=== PATIENT | male | born 1970 | race Caucasian/White ===

== ENCOUNTER 2017-09-21 14:28 | Observation (INO) | payer OTHER ==
--- OUTSIDE RECORDS SUMMARY | 2017-09-21 14:44 | XMS REPORT | Clinical Summary ---
:1970 Author Organization [facility] Address [address] [place] [address] Care Team Providers Name Role Phone Uvaldo Guerrero MD Primary Care Provider Allergies Active Allergy Reactions Severity Noted Date Comments Clindamycin Rash Low 10/16/2016 Pregabalin Anaphylaxis High 10/16/2016 Current Medications Prescription Sig. Disp. Refills Start Date End Date Status aspirin (ECOTRIN) Take 81 mg by Active 81 MG enteric mouth daily. coated tablet citalopram (CeleXA) Take 20 mg by Active 10 MG tablet mouth nightly. atorvastatin Take 80 mg by Active (LIPITOR) 80 MG mouth nightly. tablet metoprolol tartrate Take 50 mg by Active (LOPRESSOR) 50 mg mouth 2 (two) tablet times a day. lisinopril Take 20 mg by Active (PRINIVIL,ZESTRIL) mouth daily. 20 mg tablet amitriptyline Take 25 mg by Active (ELAVIL) 25 MG mouth nightly. tablet pantoprazole Take 40 mg by Active (PROTONIX) 40 MG EC mouth daily. tablet clopidogrel Take 75 mg by Active (PLAVIX) 75 mg mouth daily. tablet acetaminophen-codei Take 1 tablet Active ne (TYLENOL WITH by mouth every CODEINE #3) 300-30 4 (four) hours mg per tablet as needed for moderate pain. HYDROcodone-acetami Take 1 tablet Active nophen (NORCO) by mouth every 7.5-325 mg per 6 (six) hours tablet as needed for moderate pain. gabapentin Take 300 mg by Active (NEURONTIN) 300 mg mouth 3 capsule (three) times a day. naproxen (NAPROSYN) Take 500 mg by 01/09/2017 Discontinued 500 MG tablet mouth 2 (two) times a day with meals. doxycycline Take 1 tablet 10 tablet 0 11/01/2016 11/06/2016 (VIBRA-TABS) 100 MG (100 mg total) tablet by mouth 2 (two) times a day for 5 days. Active Problems Problem Noted Date Coronary artery disease involving [place] coronary artery of [place] heart 10/16 S/P CABG x 4 10/16/2016 VT (ventricular tachycardia) 10/16/2016 Syncope 10/16/2016 Encounters Date Type Specialty Care Team Description 09/03/2017 Ancillary Orders Procedural Valderrabano, Syncope, unspecified Cardiology Koko Solis MD syncope type 08/29/2017 Hospital Encounter Procedural Valderrabano, Syncope, unspecified Cardiology Koko Solis MD syncope type 06/03/2017 Ancillary Orders Procedural Valderrabano, Syncope, unspecified Cardiology Koko Solis MD syncope type 05/31/2017 Hospital Encounter Procedural Valderrabano, Syncope, unspecified Cardiology Koko Solis MD syncope type 03/07/2017 Ancillary Orders Procedural Valderrabano, Syncope, unspecified Cardiology Koko Solis MD syncope type 03/01/2017 Hospital Encounter Procedural Valderrabano, Syncope, unspecified Cardiology Koko Solis MD syncope type 01/09/2017 Hospital Encounter Procedural Valderrabano, Syncope, unspecified Cardiology Koko Solis MD syncope type 01/09/2017 Procedure Pass Procedural Cardiology 01/09/2017 Surgery Procedural Valderrabano, Ep tilt table [17020 Shayna Solis MD (CPT)] 12/15/2016 Office Visit Cardiology Rosa, [place] (ventricular tachycardia ) (Primary Dx); Kina Amin NP Syncope, unspecified syncope type Koko Kauffman MD 12/04/2016 Ancillary Orders Procedural Valderrabano, Syncope, unspecified Cardiology Koko Solis MD syncope type 12/01/2016 Hospital Encounter Procedural Valderrabano, Syncope, unspecified Cardiology Koko Solis MD syncope type 11/29/2016 Orders Only Cardiology Michael Intermittent cerebral Mellissa ischemia (Primary Dx) WALDO Nova 11/29/2016 Orders Only Cardiology Mellissa Rodriguez RN 11/29/2016 Telephone Cardiology Michael, Syncope Mellissa Nova RN 11/01/2016 Hospital Encounter Procedural [place], Automatic ventricular Cardiology Koko Solis MD tachycardia 11/01/2016 Procedure Pass Procedural Cardiology 11/01/2016 Surgery Procedural Valderrabano, Ep loop recorder Cardiology Koko Solis MD insertion [39750 (CPT)] 10/30/2016 Hospital Encounter Procedural Valderrabano, [place] (ventricular Cardiology Koko Solis MD tachycardia) 10/30/2016 Lab Lab [place], Pre-operative cardiovascular examination ( Primary Dx); Koko Solis MD Paroxysmal ventricular tachycardia 10/18/2016 Transcribe Orders Procedural Valderrabano, [place] (ventricular Cardiology Koko Solis MD tachycardia) (Primary Dx) 10/16/2016 Office Visit Cardiology Tereso, Syncope, unspecified syncope type (Primary Dx); Koko Solis MD Coronary artery disease involving [place] coronary artery of [place] heart without angina pectoris; [place] (ventricular tachycardia); S/P CABG x 4 after 09/20/2016 Family History Medical History Relation Name Comments Hypertension Brother Stroke Brother Hypertension Father Hypertension Mother Hypertension Sister heart disease Relation Name Status Comments Brother Father Mother Sister heart disease Son hypertension Alive Social History Tobacco Use Types Packs/Day Years Used Date Former Smoker Smokeless Tobacco: Never Used Alcohol Use Drinks/Week oz/Week Comments No Sex Assigned at Date Recorded Not on file Last Filed Vital Signs Vital Sign Reading Time Taken Blood Pressure 138/89 01/09/2017 8:32 AM CDT Pulse 72 01/09/2017 8:32 AM CDT Temperature 36.7 C (98 F) 01/09/2017 6:58 AM CDT Respiratory Rate 26 01/09/2017 8:31 AM CDT Oxygen Saturation 96% 01/09/2017 8:32 AM CDT Inhaled Oxygen Concentration - - Weight 93.7 kg (206 lb 8 oz) 01/09/2017 6:58 AM CDT Height 170.2 cm (5' 7") 01/09/2017 6:58 AM CDT Body Mass Index 32.34 01/09/2017 6:58 AM CDT Plan of Treatment Health Maintenance Due Date Last Done Comments INFLUENZA VACCINE 12/26/2017 Implants Implanted Type Area Splunk Architect Device Expiration Model / Identifier Date Serial / Lot System Reveal Linq W/Monitors - [id number] - [id number] Cardiac N/A: MEDTRONIC 10/08/2017 LINQSYS / Implanted: Qty: 1 on 11/08/2016 by Koko Kauffman MD Pacemakers and N/A CARDIAC RHYTHM [id number] / Related DISEASE MGMT [id number] Products Procedures Procedure Name Priority Date/Time Associated Comments Diagnosis CV LOOP RECORDER Routine 09/03/2017 4:22 Syncope, MONITOR EVAL PM CDT unspecified syncope <30DAYS type CV LOOP RECORDER Routine 06/03/2017 2:25 Syncope, 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 CV PACEMAKER DEFIB ILR Routine 12/15/2016 12:00 INTERROGATION AM CDT CV LOOP RECORDER Routine 12/04/2016 2:37 Syncope, MONITOR EVAL PM CDT unspecified syncope <30DAYS type CV PACEMAKER DEFIB ILR Routine 11/29/2016 12:00 INTERROGATION AM CDT EP LOOP RECORDER Routine 11/01/2016 5:27 Automatic Results for this INSERTION PM CDT ventricular procedure are in tachycardia the results section. EP COMPREHENSIVE STUDY Routine 11/01/2016 5:27 Automatic Results for this W ARRHYTHMIA INDUCTION PM CDT ventricular procedure are in tachycardia the results section. after 09/20/2016 Results Pv Transcranial Doppler intracranial arteries emboli detect wo inj (01/09/2017 8:30 AM) Specimen Performing Laboratory [facility] [address] [place] [address] Narrative Vascular Ultrasound Laboratory Transcranial Doppler Report (TCD) [address] [place] [address] Pat.Name:FRANCISCA UNGER Pat.ID:[id number] St.Date: 01/09/2017 Refer.MD:KOKO KAUFFMAN MD Exam Time: 6:20:00 AMStudy Type:TCD DOBAge:1970,46YSex: MALE Sonogrphr: Sylwia Rogers RVTPbrielle. Stat.:Inpatient Room:[place] [address] Room 15 TapeVol: RF, CPT - 4: 19640 Echo Event ID:[id number] Order ID:[id number] Reason for Study:Multiple recurrent syncopal episodes. History of CAD, s/p PR, S/P CABG(08/2015). Race:C SUMMARY: TECHNIQUE: A head frame was placed with a transducer placed on the left temporal window. Transcranial Doppler was used to monitor the brain through the temporal lobe. The Middle cerebral artery was evaluated during tilt table assessment. PRELIMINARY FINDINGS: 1.There was no changes in velocities and waveforms during the 30 minute tilt table assessment. 2.No evidence of emboli noted. PHYSICIAN INTERPRETATION: There was no significant changes in velocities and waveforms during the 30 minute tilt table assessment. Signed 01/09/2017 05:15 PM Demetrius Frias MD, RPVI Procedure Note Interface, Radiology Results In - 01/09/2017 5:15 PM CDT Vascular Ultrasound Laboratory Transcranial Doppler Report (TCD) [address] [place] [address] Pat.Name: FRANCISCA UNGER Pat.ID: [id number] .Date: 01/09/2017 Refer.MD: KOKO KAUFFMAN MD Exam Time: 6:20:00 AM Study Type:TCD Age: 12 1970,46Y Sex: MALE Sonogrphr: Sylwia Rogers RVT Pat. Stat.:Inpatient Room: [place] [address] Room 15 Tape Vol: RF, CPT - 4: 65733 Echo Event ID:[id number] Order ID: [id number] Reason for Study:Multiple recurrent syncopal episodes. History of CAD, s/p PR, S/P CABG(08/2015). Race: C SUMMARY: TECHNIQUE: A head frame was placed with a transducer placed on the left temporal window. Transcranial Doppler was used to monitor the brain through the temporal lobe. The Middle cerebral artery was evaluated during tilt table assessment. PRELIMINARY FINDINGS: 1. There was no changes in velocities and waveforms during the 30 minute tilt table assessment. 2. No evidence of emboli noted. PHYSICIAN INTERPRETATION: There was no significant changes in velocities and waveforms during the 30 minute tilt table assessment. Signed 01/09/2017 05:15 PM Demetrius Frias MD, RPVI Cv electrophysiology procedure (01/09/2017 8:25 AM) Specimen Performing Laboratory [facility] [address] [place] [address] Narrative Cardiac Catheterization Operative Note Francisca Unger,[id number] 46 y.o. male 01/09/2017; [facility] 8 PROCEDURE ROOM 15 Procedure(s): Ep tilt table Procedure Details 46 year-old man with CAD, s/p PR, preserved EF, and recurrent syncope. Negative workup including EPS, ILR implant. Underwent tilt-table testing under TCD cerebral flow monitoring. Vitals and TCD were monitored during horizontal position for 20 minutes. Tilted up to 70 degrees. BP increased up to 17-190/90-107. Only symptoms were headache due to TCD helmet. After 25 minutes, 0.4 mg of SL NTG were administered. BP dropped to 160/90 without any symptom other than persistent headache. The test was then terminated. Conclusion: negative tilt table test. Syncope origin remains a mystery but unlikely to be cardiac given the extensive workup thus far. Pre-op Diagnosis: Syncope, unspecified syncope type [R55] Post-Op Diagnosis Codes: * Syncope, unspecified syncope type [R55] Surgeon(s) and Role: * Koko Kauffman MD - Primary Anesthesia: Anesthesia type not filed in the log. Blood Products Administered:0 Estimated Blood Loss: * No values recorded between 01/09/20177:32 AM and 01/09/20178:42 AM * Sheath/IV: Specimens: * No specimens in log * Grafts/Implants: None MD John Date: 01/09/2017Time: 8:42 AM ECG 12 lead (01/09/2017 6:58 AM)Only the most recent of4 resultswithin the time period is included. Component Value Ref Range Ventricular rate 60 Atrial rate 60 ME interval 168 QRSD interval 104 QT interval 448 QTC interval 448 P axis 1 55 QRS axis 1 -1 T wave axis 33 EKG impression Normal sinus rhythm-Normal ECG-In automated comparison with ECG of 15-DEC-2016 15:52,-Nonspecific T wave abnormality has replaced inverted T waves in Inferior leads- Specimen Performing Laboratory [facility] [address] [place] [address] CV pacemaker defib or ilr interrogation (12/15/2016)Cv pacemaker defib or ilr interrogation (12/04/2016 2:37 PM) Specimen Performing Laboratory [facility] [address] [place] [address] CT Head External Study (11/29/2016)CV pacemaker defib or ilr interrogation (09/2016)ECG Pre/Post Op (11/01/2016 5:45 PM) Component Value Ref Range Ventricular rate 65 Atrial rate 65 ME interval 174 QRSD interval 100 QT interval 408 QTC interval 424 P axis 1 60 QRS axis 1 2 T wave axis 53 EKG impression Normal sinus rhythm-Normal ECG-In automated comparison with ECG of 01-NOV-2016 11:58,-No significant change was found- Specimen Performing Laboratory [facility] [address] [place] [address] Cv electrophysiology procedure (11/01/2016 5:27 PM) Specimen Performing Laboratory [facility] [address] [place] [address] Narrative ELECTROPHYSIOLOGY SERVICE OPERATIVE REPORT PREPROCEDURE DIAGNOSES: 1. Wide complex tachycardia 2. Syncope 3. CAD status post CABG (cardiac MRI with total scar burden in LV of 4 %) POSTPROCEDURE DIAGNOSIS: 2. EP Study non-inducible for ventricular tachycardia/ventricular fibrillation TITLE OF PROCEDURES: 1. Partial electrophysiologic study 2. Partial electrophysiologic study with isoproterenol ATTENDING SURGEON: Dr. Koko Kauffman ELECTRONIC GAMING DEVICE SUPERVISOR: Dr. Jude Dennison REFERRING PHYSICIAN: ANESTHESIA: Conscious sedation for 60 minutes INDICATIONS: The patient is a 63 y.o. year old male with history ofCAD status post CABG (cardiac MRI with total scar burden in LV of 4 %), recurrent syncope, and wide complex tachycardia by event monitor referred for diagnostic electrophysiologic study. DOCUMENTATION OF INFORMED CONSENT: Prior to the procedure, I had spoken extensively with the patient regarding the risks, benefits, and alternatives to diagnostic electrophysiologic study.The risks discussed included, but were not limited to the risks of , bleeding, perforation, infection, tamponade, heart failure, and recurrent arrhythmias.He asked appropriate questions and these were fully answered and he wished to proceed. DETAILS: After written informed consent was obtained from the patient in the fasting, nonsedated state, the patient was brought to the cardiac catheterization laboratory and was anesthetized as above.Vascular access was now obtained using a modified Seldinger technique and guided by ultrasonography as follows: 1.Right femoral vein:6-American sheaths x 2. We now advanced catheters under fluoroscopic guidance as follows: 1.A quadripolar CRD catheter was positioned at the right ventricular apex. 2.A quadripolar CRD-2 catheter was positioned at the RV base. The above catheters were repositioned to other sites as needed. We performed the baseline electrophysiologic study with findings as given below, using the catheters specified above. Isoproterenol was administered up to 10 mcg/min. It should be noted that he experienced syncope during the electrophysiologic study similar to his usual syncopal episodes at home. His HR and BP were stable and there was no VT/VF seen/induced at the time of the syncopal episode or during the electrophysiologic study. At this point, the electrophysiologic study was completed, and all catheters and sheaths were removed and excellent hemostasis was obtained using manual compression. ESTIMATED BLOOD LOSS: 5 ml. COMPLICATIONS: None. FINDINGS: 1.The baseline rhythm was normal sinus rhythm. 2.Normal HV 50 msec, AH 114 msec, ME 160 msec, QT 400 msec, QRS 84 msec. 3.There was no retrograde VA conduction at baseline at cycle length 600 msec. 4.RVERP 260 msec, baseline, pacing cycle length 600 msec. 5.RVERP 210 msec, baseline, pacing cycle length 450 msec. 6.RVERP 230 msec, isoproterenol, pacing cycle length 600 msec. 7.RVERP 230 msec, isoproterenol, pacing cycle length 450 msec. 8.Induced arrhythmias: None PLAN: 1. The patient will be kept on strict bed rest per routine for 4 hours. Given non-inducibility of ventricular tachycardia, it was strongly felt that he would be a good candidate for the LINQ ILR for long-term cardiac rhythm monitoring. Thus, the decision was made to implant the LINQ ILR.This was also discussed with both the patient and in his and they were in agreement with the plan. He will be discharged home today following LINQ ILR implant. ELECTROPHYSIOLOGY SERVICE PROCEDURE REPORT PREOPERATIVE DIAGNOSIS: 1. Syncope 2. Wide complex tachycardia POSTOPERATIVE DIAGNOSIS: 1. S/p successful insertion of an implantable loop recorder PROCEDURE PERFORMED: 1. Implantable loop recorder placement. INDICATIONS: This is a 46 y.o. male with history of CAD status post CABG (cardiac MRI with total scar burden in LV of 4 %), recurrent syncope, and wide complex tachycardia by event monitor referred for diagnostic electrophysiologic study and was non-inducible for VT/VF. Thus, he is referred for LINQ ILR implant for long-term cardiac monitoring. He was seen by the attending migratory worker and was deemed an appropriate candidate for the LINQ ILR implant. PROCEDURE IN DETAIL: The patient was brought to the cardiac catheterization procedure room. The left chest was cleaned and prepped in usual fashion and draped. Lidocaine 1% was administered to the left upper chest.A 1 cm incision was made and an implantable loop recorder was deployed.The incision was subsequently closed with 4.0 running suture and Dermabond.The patient tolerated the procedure well with no immediate complications. IMPLANTED MATERIALS: ILR: Medtronic model LNQ11 serial [id number] CONCLUSION: Successful implantable loop recorder placement. Cardiac mri function viability chf evaluation (10/30/2016 1:51 PM) Specimen Performing Laboratory [facility] [address] CMR Report Patient Patient Name: FRANCISCA UNGER Patient : 1970 Scan Date:2016-10-30 13:00:52 Finalized and signed by José Ibarra M.D. (uid:20) 12:04: 37. SUMMARY ====== ======== 1.Mild RA enlargement. NO intra-cardiac thrombus.Sternotomy wires noted. 2.Normal LV and RV systolic function without wall motion abnormalities ( LVEF 67%, RVEF 55%). 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 There is a separate focal subendocardial infarction (< 25% wall thickness) in the apical septum. Total scar burden is 4% of LV. 4.NO significant valvular abnormalities. 5.Mildly dilated aortic root (4.0 cm SoV). The reminder of the thoracic aorta is of normal caliber without an aneurysm or dissection. Normal pulmonary venous anatomy. CORE EXAM ====== ======== MEASUREMENTS VOLUMETRIC ANALYSIS . . || LV | Reference| RV | Reference| +------+ + + + + | EDV| 143.6 ml |(131-202) | 138.9 ml |(126-220) | | ESV| 48 ml|(35-78) | 63.2 ml|(33-92) | | CO | 6.88 L/min || 5.45 L/min || | MASS | 109.8 g|(118-186) ||| | SV | 95.6 ml|(86-135)| 75.7 ml|(80-145)| | EF | 66.57 %|(118-153) | 54.5 % |(106-157) | '------+ + + + ' HEART RATE:72 LV DIMENSIONS WALL THICKNESS - ANTEROSEPTAL:0.8 cm WALL THICKNESS - INFEROLATERAL:0.7 cm LV PREETHI:4.9 cm LV ESD:3.6 cm LA DIMENSIONS (LV SYSTOLE) DIAMETER:2.6 cm AREA - 2 CHAMBER:15 cm^2 LENGTH - 2 CHAMBER:4.2 cm AREA - 4 CHAMBER:14 cm^2 LENGTH - 4 CHAMBER:3.5 cm VOLUME:51 ml AORTIC ROOT DIMENSIONS DIAMETER - ANNULUS:2.7 cm DIAMETER - SINUS OF VALSALVA:4 cm DIAMETER - SINOTUBULAR JUNCTION:2.6 cm AORTIC ROOT SIZE:MILDLY DILATED CONDENSED SUMMARY LV:Normal Wall Thickness. Cavity Size is Normal. No Mass/Thrombus. RV:Normal Wall Thickness. Contractility is Normal. Cavity Size is Normal. No Mass/Thrombus. No Pacemaker/Defibrillator Wire. IVS:Normal Interventricular Septum. LA:Cavity Size is Normal. No Mass/Thrombus. IAS:Normal Interatrial Septum. RA:Cavity Size is MILDLY ENLARGED. No Mass/Thrombus. No Additional Findings. No Pacemaker/Defibrillator Wire. PER:Normal Pericardium. No Effusion. PE:No Pleural Effusion. AV:Trileaflet. No Aortic Regurgitation. No Aortic Stenosis. TV:Normal Leaflets. Trivial Tricuspid Regurgitation. No Tricuspid Stenosis. MV:Normal Leaflets. No Mitral Regurgitation. No Mitral Stenosis. PV:Normal Leaflets. No Pulmonic Regurgitation. No Pulmonic Stenosis. 17 SEGMENT . ------ ------. | LV Segments| Wall Motion| Hyperenhancement | Stress Perfusion | Interpretation | + + + + +---- ------ ------+ | Base Anterior| Normal/Hyper | None ||| | Base Anteroseptal| Normal/Hyper | None ||| | Base Inferoseptal| Normal/Hyper | None ||| | Base Inferior| Normal/Hyper | None ||| | Base Inferolateral | Normal/Hyper | 1-25%|| Sub-Endo PR| | Base Anterolateral | Normal/Hyper | 1-25%|| Sub-Endo PR| | Mid Anterior | Normal/Hyper | None ||| | Mid Anteroseptal | Normal/Hyper | None ||| | Mid Inferoseptal | Normal/Hyper | None ||| | Mid Inferior | Normal/Hyper | None ||| | Mid Inferolateral| Normal/Hyper | 1-25%|| Sub-Endo PR| | Mid Anterolateral| Normal/Hyper | 1-25%|| Sub-Endo PR| | Apical Anterior| Normal/Hyper | None ||| | Apical Septal| Normal/Hyper | 1-25%|| Sub-Endo PR| | Apical Inferior| Normal/Hyper | None ||| | Apical Lateral | Normal/Hyper | None ||| | Dennis | Normal/Hyper | None ||| + + + + +---- ------ ------+ | RV Segments| Wall Motion| Hyperenhancement | Stress Perfusion | Interpretation | + + + + +---- ------ ------+ | RV Basal Anterior| Normal/Hyper | None ||| | RV Basal Inferior| Normal/Hyper | None ||| | RV Mid | Normal/Hyper | None ||| | RV Apical| Normal/Hyper | None ||| ' + + + +---- ------ ------' FINDINGS INFARCT/SCAR SIZE:4 % VASCULAR ====== ======== SCAN INFO ====== ======== GENERAL SEDATION SEDATION USED?:Yes TYPE:Lorazepam DOSE:1 mg ANY REACTION?:No CONTRAST AGENT TYPE:Dotare[employer] LOT NUMBER:[id number] EXPIRATION DATE:2018-08-25 00:00:00 VOLUME ADMINISTERED:28 ml DOSAGE FOR 0.5M:0.15 mmol/kg SERUM CREATININE:1 sCr FEMALE:No OR BLACK:Unknown CREATININE DATE:2016-10-30 00:00:00 LAB RESULT HEMATOCRIT LEVEL:44.9 % HEMATOCRIT DATE:2016-10-30 00:00:00 VITALS HEIGHT:67 in HEIGHT:170.18 cm BODY WEIGHT:205.01 lbs BODY WEIGHT:92.99 kgs BSA::2.04 m^2 SYSTOLIC BP:131 mmHg DIASTOLIC BP:83 mmHg HEART RATE:76 BPM HEART RHYTHM:Sinus Rhythm PULSE SEQUENCE PULSE SEQUENCES:Single-Shot SSFP, IR SSFP - Single Shot, Single Shot BB HERMILA, SSFP Cine, Phase Contrast Velocity Mapping, 3D MRA w and w/o contrast, Time- Resolved 3D MRA SETUP TYPE:Both INPATIENT:No LOCATION:[facility] INCOMPLETE SCAN:No REASON(S) FOR SCAN:CHF/Cardiomyopathy, Syncope REFERRING PHYSICIAN:1) Koko TAYLOR PHYSICIAN:José Ibarra MD TECHNOLOGIST:Barb Rader [facility] ASSISTANTS:1) Capri Rios RN 2) Wilmar Melton, RT 3) Emmett Miller MD BILLING Patient Account [id number] CPT Codes 78337, [ , ]31404 ICD10 Codes R94.30, [ , ]R93.1, [ , ]I49.8 Procedure Note Interface, Radiology Results In - 10/31/2016 12:05 PM CDT Darell Johnson CMR Report Patient Patient Name: FRANCISCA UNGER Patient : 1970 Scan Date: 2016-10-30 13:00:52 Finalized and signed by José Ibarra M.D. (uid:20) 12:04:37. SUMMARY 1. Mild RA enlargement. NO intra-cardiac thrombus. Sternotomy wires noted. 2. Normal LV and RV systolic function without wall motion abnormalities (LVEF 67%, RVEF 55%). 3. Subendocardial infarction (< 25% wall thickness) in the basal-mid lateral wall (LCX distribution). There is a separate focal subendocardial infarction (< 25% wall thickness) in the apical septum. Total scar burden is 4% of LV. 4. NO significant valvular abnormalities. 5. Mildly dilated aortic root (4.0 cm SoV). The reminder of the thoracic aorta is of normal caliber without an aneurysm or dissection. Normal pulmonary venous anatomy. CORE EXAM MEASUREMENTS VOLUMETRIC ANALYSIS . . | | LV | Reference | RV | Reference | +------+ + + + + | EDV | 143.6 ml | (131-202) | 138.9 ml | (126-220) | | ESV | 48 ml | (35-78) | 63.2 ml | (33-92) | | CO | 6.88 L/min | | 5.45 L/min | | | MASS | 109.8 g | (118-186) | | | | SV | 95.6 ml | (86-135) | 75.7 ml | (80-145) | | EF | 66.57 % | (118-153) | 54.5 % | (106-157) | '------+ + + + ' HEART RATE: 72 LV DIMENSIONS WALL THICKNESS - ANTEROSEPTAL: 0.8 cm WALL THICKNESS - INFEROLATERAL: 0.7 cm LV PREETHI: 4.9 cm LV ESD: 3.6 cm LA DIMENSIONS (LV SYSTOLE) DIAMETER: 2.6 cm AREA - 2 CHAMBER: 15 cm^2 LENGTH - 2 CHAMBER: 4.2 cm AREA - 4 CHAMBER: 14 cm^2 LENGTH - 4 CHAMBER: 3.5 cm VOLUME: 51 ml AORTIC ROOT DIMENSIONS DIAMETER - ANNULUS: 2.7 cm DIAMETER - SINUS OF VALSALVA: 4 cm DIAMETER - SINOTUBULAR JUNCTION: 2.6 cm AORTIC ROOT SIZE: MILDLY DILATED CONDENSED SUMMARY LV:Normal Wall Thickness. Cavity Size is Normal. No Mass/Thrombus. RV:Normal Wall Thickness. Contractility is Normal. Cavity Size is Normal. No Mass/Thrombus. No Pacemaker/Defibrillator Wire. IVS:Normal Interventricular Septum. LA:Cavity Size is Normal. No Mass/Thrombus. IAS:Normal Interatrial Septum. RA:Cavity Size is MILDLY ENLARGED. No Mass/Thrombus. No Additional Findings. No Pacemaker/Defibrillator Wire. PER:Normal Pericardium. No Effusion. PE:No Pleural Effusion. AV:Trileaflet. No Aortic Regurgitation. No Aortic Stenosis. TV:Normal Leaflets. Trivial Tricuspid Regurgitation. No Tricuspid Stenosis. MV:Normal Leaflets. No Mitral Regurgitation. No Mitral Stenosis. PV:Normal Leaflets. No Pulmonic Regurgitation. No Pulmonic Stenosis. 17 SEGMENT . . | LV Segments | Wall Motion | Hyperenhancement | Stress Perfusion | Interpretation | + + + + +---- + | Base Anterior | Normal/Hyper | None | | | | Base Anteroseptal | Normal/Hyper | None | | | | Base Inferoseptal | Normal/Hyper | None | | | | Base Inferior | Normal/Hyper | None | | | | Base Inferolateral | Normal/Hyper | 1-25% | | Sub -Endo PR | | Base Anterolateral | Normal/Hyper | 1-25% | | Sub -Endo PR | | Mid Anterior | Normal/Hyper | None | | | | Mid Anteroseptal | Normal/Hyper | None | | | | Mid Inferoseptal | Normal/Hyper | None | | | | Mid Inferior | Normal/Hyper | None | | | | Mid Inferolateral | Normal/Hyper | 1-25% | | Sub -Endo PR | | Mid Anterolateral | Normal/Hyper | 1-25% | | Sub -Endo PR | | Apical Anterior | Normal/Hyper | None | | | | Apical Septal | Normal/Hyper | 1-25% | | Sub -Endo PR | | Apical Inferior | Normal/Hyper | None | | | | Apical Lateral | Normal/Hyper | None | | | | Dennis | Normal/Hyper | None | | | + + + + +---- + | RV Segments | Wall Motion | Hyperenhancement | Stress Perfusion | Interpretation | + + + + +---- + | RV Basal Anterior | Normal/Hyper | None | | | | RV Basal Inferior | Normal/Hyper | None | | | | RV Mid | Normal/Hyper | None | | | | RV Apical | Normal/Hyper | None | | | ' + + + +---- ' FINDINGS INFARCT/SCAR SIZE: 4 % VASCULAR SCAN INFO GENERAL SEDATION SEDATION USED?: Yes TYPE: Lorazepam DOSE: 1 mg ANY REACTION?: No CONTRAST AGENT TYPE: Dotarem LOT NUMBER: [id number] EXPIRATION DATE: 2018-08-25 00:00:00 VOLUME ADMINISTERED: 28 ml DOSAGE FOR 0.5M: 0.15 mmol/kg SERUM CREATININE: 1 sCr FEMALE: No OR BLACK: Unknown CREATININE DATE: 2016-10-30 00:00:00 LAB RESULT HEMATOCRIT LEVEL: 44.9 % HEMATOCRIT DATE: 2016-10-30 00:00:00 VITALS HEIGHT: 67 in HEIGHT: 170.18 cm BODY WEIGHT: 205.01 lbs BODY WEIGHT: 92.99 kgs BSA:: 2.04 m^2 SYSTOLIC BP: 131 mmHg DIASTOLIC BP: 83 mmHg HEART RATE: 76 BPM HEART RHYTHM: Sinus Rhythm PULSE SEQUENCE PULSE SEQUENCES: Single-Shot SSFP, IR SSFP - Single Shot, Single Shot BB HERMILA, SSFP Cine, Phase Contrast Velocity Mapping, 3D MRA w and w/o contrast, Time-Resolved 3D MRA SETUP TYPE: Both INPATIENT: No LOCATION: [facility]PC INCOMPLETE SCAN: No REASON(S) FOR SCAN: CHF/Cardiomyopathy, Syncope REFERRING PHYSICIAN: 1) Koko Kauffman MD ATTENDING PHYSICIAN: José Ibarra MD TECHNOLOGIST: Barb Rader [facility] ASSISTANTS: 1) Capri Rios RN 2) Wilmar Melton, RT 3) Emmett Miller MD [facility] Patient Account [id number] CPT Codes 16044, [ , ]90988 ICD10 Codes R94.30, [ , ]R93.1, [ , ]I49.8 Estimated GFR (10/30/2016 9:26 AM) Component Value Ref Range GFR Non Af Amer 81 mL/min/1.73 m2 GFR Af Amer >90 mL/min/1.73 m2 Comment: Chronic kidney disease: <60 mL/min/1.73m2 Kidney failure: <15 mL/min/1.73m2 The estimated GFR is calculated from the IDMS-traceable Modification of Diet in Renal Disease Equation. The accuracy of the calculation is poor when the creatinine is normal. Calculated values >90 mL/min/1.73m2 are not reported. This equation has not been validated in children (<18 years), women, the elderly (>70 years), or ethnic groups other than Caucasians and Americans. Specimen Performing Laboratory Plasma specimen [facility] DEPARTMENT OF PATHOLOGY AND GENOMIC MEDICINE [address] [place] [address] Partial thromboplastin time, activated (10/30/2016 9:26 AM) Component Value Ref Range PTT 25.1 23.0 - 36.0 sec Comment: PTT therapeutic range for unfractionated heparin is 61.0-112.0 seconds which corresponds to Anti-Xa 0.3-0.7 U/ml. Specimen Performing Laboratory Blood [facility] DEPARTMENT OF PATHOLOGY AND [facility] MEDICINE [address] [place] [address]246 Prothrombin time with INR (10/30/2016 9:26 AM) Component Value Ref Range Prothrombin time 12.5 12.0 - 15.0 sec INR 0.9 Comment: The International Normalized Ratio (INR) is a therapeutic monitoring tool for patients who are stable on oral anticoagulant therapy. An INR of 2.0-3.0 is suggested for deep vein thrombosis/pulmonary embolism. Specimen Performing Laboratory Blood [facility] DEPARTMENT OF PATHOLOGY AND [facility] MEDICINE [address] [place] [address] CBC hemogram (10/30/2016 9:26 AM) Component Value Ref Range WBC 6.85 4.50 - 11.00 k/uL RBC 4.87 4.40 - 6.00 m/uL HGB 14.1 14.0 - 18.0 g/dL HCT 44.9 41.0 - 51.0 % MCV 92.2 82.0 - 100.0 fL MCH 29.0 27.0 - 34.0 pg MCHC 31.4 31.0 - 37.0 g/dL RDW - SD 49.1 37.0 - 55.0 fL MPV 10.1 8.8 - 13.2 fL Platelet count 299 150 - 400 k/uL Nucleated RBC 0.00 /100 WBC Specimen Performing Laboratory Blood [facility] DEPARTMENT OF PATHOLOGY AND GENOMIC MEDICINE [address] [place] [address] Type and screen (10/30/2016 9:26 AM) Component Value Ref Range ABO grouping A Rh type POS Antibody screen (gel) NEG Specimen Performing Laboratory Blood [facility] DEPARTMENT OF PATHOLOGY AND [address] [address] Comprehensive metabolic panel (10/30/2016 9:26 AM) Component Value Ref Range Sodium 136 135 - 148 mEq/L Potassium 4.4 3.5 - 5.0 mEq/L Chloride 97 (L) 98 - 112 mEq/L CO2 25 24 - 31 mEq/L Anion gap 14 7 - 15 mEq/L Comment: Starting from August , anion gap calculation no longer incorporates potassium. Please note the change. BUN 14 6 - 20 mg/dL Creatinine 1.0 0.7 - 1.2 mg/dL Glucose 95 65 - 99 mg/dL Calcium 9.2 8.3 - 10.2 mg/dL Protein 8.4 (H) 6.3 - 8.3 g/dL Comment: [place] 4.6-7.0 g/dL 1 week 4.4-7.6 g/dL 7 months-1year5.1-7.3 g/dL 1-2 years5.6-7.5 g/dL >3 years6.0-8.0 g/dL 18-150 6.3-8.3 g/dL Albumin 3.6 3.5 - 5.0 g/dL A/G ratio 0.8 0.7 - 3.8 Alkaline phosphatase 119 40 - 129 U/L AST 28 10 - 50 U/L ALT 43 5 - 50 U/L Total bilirubin 1.0 0.0 - 1.2 mg/dL Specimen Performing Laboratory Plasma specimen [facility] DEPARTMENT OF PATHOLOGY AND GENOMIC MEDICINE [address] [place] [address] after 09/20/2016 Insurance Payer Benefit Plan / Group Subscriber ID Type Phone Address [facility] OPEN ACCESS/NETWORK xxxxxxxxxxx O Home: [address] [phone] [place], [place] [phone]
[2017-09-21] MEDS: NA CHLORIDE 0.9% 1,000 ML IV SCH (16:22)
[2017-09-21 16:25] LABS: Absolute Lymphocytes (CBC) 0.9 K/uL (0.7-4.9); Absolute Monocytes 1.1 K/uL (0.1-1.3); Absolute Neutrophil 5.4 K/uL (1.8-8.0); Basophils % 0.1 % (0-1.3); Eosinophils % 0.5 % (0-4.4); Hematocrit 39.5 % (39.6-49.0); Lymphocytes % 11.7 % (15.3-44.8); MCH 29.5 pg (27.0-35.0); MCV 87.3 fL (80-100); MPV 8.5 fL (7.6-11.3); Monocytes % 14.4 % (3.3-12.3); RBC Red Blood Cell Count 4.52 M/uL (4.33-5.43)
[2017-09-21 16:28] LABS: Albumin 4.3 g/dL (3.2-5.5); Bilirubin Total 1.6 mg/dL (0.3-1.2); Potassium 3.7 mEq/L (3.6-5.0); Protein, Total 8.2 g/dL (6.0-8.3)
[2017-09-21] MEDS ORDERED: HYDROCODONE/APAP 7.5/325 MG TAB PO PRN (17:43)
[2017-09-21 18:32] LABS: Platelet Estimate ADEQ; Urine White Blood Cell Casts OK
[2017-09-21 18:33] LABS: Anisocytosis 1+; Blood Morphology Comment NOTED (NOT SEEN)
[2017-09-21 19:39] VITALS: BMI 31.0
--- NOTE | 2017-09-21 19:44 | RAD REPORT ---
EXAM DESCRIPTION: CT - Abdomen Pelvis Wo Contrast - 09/21/2017 7:13 pm CLINICAL HISTORY: Abdominal pain COMPARISON: November 2014 TECHNIQUE: Axial [address] imaging of the abdomen and pelvis was performed without IV contrast. No IV contrast was given because of allergy, abnormal renal function, patient refusal or physician re quest. Oral contrast was given. All CT scans are performed using dose optimization technique as appropriate and may include automated exposure control or mA/KV adjustment according to patient size. FINDINGS: No suspicious findings in the lung bases. The liver, spleen and pancreas show no suspicious findings on non-contrast imaging. An 8 millimeter g allstone is present near the neck of the gallbladder. No wall thickening or pericholecystic fluid. No intrahepatic biliary tree dilatation. Common bile duct is 7-8 mm which is upper normal or minimally enlarged. This is an increased over the prior study. There is a questionable small duct stone. Stone assessment is limited. No hydronephrosis or suspicious renal mass. No significant adrenal finding. Isodense renal masses an d pyelonephritis cannot be excluded in the absence of IV contrast. Urinary bladder is contracted. Spr ay artifact from the hip prostheses also limits pelvic floor assessment. No dilated bowel loops or bowel wall thickening. No free air, free fluid or inflammatory stranding. N o hernia, mass or bulky lymphadenopathy. Normal stranding is seen at the site of prior left mid abdom en colostomy. No active process in this region. No suspicious bony findings. IMPRESSION: Common bile duct is upper normal to minimally enlarged. This is an increase from 2015. T here is a questionable small duct stone. An 8 millimeter gallstone has developed since the prior study. No active gallbladder process seen. No bowel obstruction, free air or other surgically emergent finding. Full assessment is limited is the absence of IV contrast.
[2017-09-21] MEDS ORDERED: SERTRALINE HCL 100 MG TAB PO SCH (21:00)
[2017-09-21] MEDS ORDERED: ATORVASTATIN 80 MG TAB PO SCH (21:00)
[2017-09-21] MEDS ORDERED: TRAZODONE 50 MG TABLET PO SCH (21:00)
[2017-09-21] MEDS: METOPROLOL TAR 50 MG TAB PO SCH (21:08)
[2017-09-21] MEDS: CIPROFLOXACIN 400mg IV 400 MG/200 ML BAG IV SCH (21:09)
[2017-09-21] MEDS: GABAPENTIN 300 MG CAP PO SCH (21:11)
[2017-09-21 23:12] VITALS: O2SAT 98
[2017-09-22 05:43] LABS: Urine Appearance CLEAR; Urine Bilirubin NEGATIVE (NEG); Urine Blood NEGATIVE (NEG); Urine Color YELLOW; Urine Glucose NEGATIVE (NEG); Urine Protein TRACE (NEG); Urine Urobilinogen 0.2 mg/dL (0.2-1.0); Urine pH 5.5 (5.0-7.0)
[2017-09-22 05:53] LABS: Urine Microscopic Reflex ORDER UMIC
[2017-09-22 06:18] LABS: Urine Bacteria <20 /HPF (NONE SEEN); Urine RBC <5 /HPF (NONE SEEN)
[2017-09-22 06:19] LABS: Urine Culture Reflex Order NOT NEEDED
--- NOTE | 2017-09-22 06:20 | HP ---
Date of Admission: 09/21/2017 Chief Complaint: Persistent diarrhea, nausea. History Of Present Illness: A 47-year-old male who was brought to the office yesterday with history of 3 days of diarrhea and abdominal cramps. The patient was reluctant to go through any workup for h ospitalization. He wanted to try antibiotic. The patient was given Cipro and advised to force oral liquids. The patient came back with the today, because of continued symptoms even though he was feeling little bit better. In view of continued symptoms, admission again was advised. The patient was reluctant, however multiple consultations were done with the by the patient. Eventually, t he patient decided to get admitted. The patient is admitted for IV fluids and workup for his persist ent diarrhea. Past Medical History: Significant for multiple medical issues that include history of hypertension, myocardial infarction, history of diverticulitis. Past Surgical History: Positive for hip replacements, colostomy and reversal of colostomy, bowel res ection. He also has history of coronary angioplasty and coronary bypass surgery. Review of Systems: The patient denied any chest pain or shortness of breath. Home Medicines: Please refer to the chart. Physical Examination: General: Revealed a 47-year-old male with mild dehydration. HEENT: No icterus. Neck: Supple. JVD negative. Chest: Clear. Heart: Regular. Abdomen: Minimal tenderness. Bowel sounds present. Extremities: No edema. Neurological: No focal deficits. Laboratory Data: White count 7.4. Chem profile; BUN 32, creatinine 2.7, bilirubin 1.6. CAT scan of the abdomen, evidence of gallstones without cholecystitis. Assessment: 1.Dehydration. 2.Renal dysfunction, probably secondary to dehydration. 3.Diarrhea, rule out Escherichia coli or other bacterial enteritis. 4.History of coronary artery disease and coronary bypass surgery. 5.Hyperlipidemia. 6.History of bilateral hip surgery. Plan: IV fluids. IV Cipro. Repeat Chem profile in a.m. Clear liquid diet. ROLANDA/DAY Voice ID: [id number]
[2017-09-22] MEDS: NA CHLORIDE 0.9% 1,000 ML IV SCH ×2 (08:18)
[2017-09-22] MEDS: CIPROFLOXACIN 400mg IV 400 MG/200 ML BAG IV SCH (08:18)
[2017-09-22] MEDS: GABAPENTIN 300 MG CAP PO SCH ×2 (08:19→14:21)
[2017-09-22] MEDS: METOPROLOL TAR 50 MG TAB PO SCH (08:20)
[2017-09-22] MEDS ORDERED: CLOPIDOGREL 75 MG TABLET PO SCH (09:00)
[2017-09-22] MEDS ORDERED: PANTOPRAZOLE 40MG TABLET PO SCH (09:00)
[2017-09-22] MEDS ORDERED: ASPIRIN EC 81 MG TAB PO SCH (09:00)
[2017-09-22 09:32] LABS: Potassium 3.5 mEq/L (3.6-5.0)
[2017-09-22] MEDS ORDERED: POTASSIUM 25 MEQ EFFERV TAB PO ONE (10:46)
[2017-09-22 14:21] VITALS: BP 137/77; TEMP 97.1
== END 2017-09-22 15:37 | disposition home or self-care (01) ==
LOC: UNDOADMOB 14:41 → 2ND 14:41
PROVIDERS: ADMIT Internal Medicine; ATTEND Internal Medicine
DX: E86.0 Dehydration (principal); N28.9 Disorder of kidney and ureter, unspecified; R19.7 Diarrhea, unspecified; I10 Essential (primary) hypertension; Z98.61 Coronary angioplasty status; Z95.1 Presence of aortocoronary bypass graft; Z96.643 Presence of artificial hip joint, bilateral; I25.2 Old myocardial infarction
CPT/HCPCS: 36415; 74176; 80048; 80053; 81003; 81015; 85025; 87045; 87046; 87493; G0378; J0744; J7030

== ENCOUNTER 2017-10-19 05:37 | Emergency (ER) | payer OTHER ==
--- OUTSIDE RECORDS SUMMARY | 2017-10-19 05:44 | XMS REPORT | Clinical Summary ---
:1970 Author Organization [facility] Address [address] [place] [address] Care Team Providers Name Role Phone Uvaldo [...] Problem Noted Date Coronary artery disease involving k[place]zebue coronary artery of [place] heart 10/16 S/P CABG x 4 10/16/2016 [...] 01/09/2017 Surgery Procedural Valderrabano, Ep tilt table [[id number] Shayna Solis MD (CPT)] 12/15/2016 Office Visit [...] loop recorder Cardiology Koko Solis MD insertion [97337 (CPT)] 10/30/2016 Hospital Encounter Procedural [place] (ventricular Cardiology Koko Solis MD tachycardia) 10/30/2016 Lab Lab [facility], Pre-operative cardiovascular examination ( Primary Dx); Koko Solis MD Paroxysmal ventricular tachycardia 10/18/2016 Transcribe Orders Procedural Valderrabano, [place] (ventricular Cardiology Koko Solis MD tachycardia) (Primary Dx) after 10/18/2016 Family History Medical History Relation Name Comments [...] INFLUENZA VACCINE 12/26/2017 Implants Implanted Type Area Application Support Engineer Device Expiration Model / Identifier Date Serial / Lot System Reveal Linq W/Monitors - [id number] - [id number] Cardiac N/A: MEDTRONIC 10/08/2017 LINQSYS / Implanted: Qty: 1 on 11/08/2016 by Koko Kauffman MD Pacemakers and N/A CARDIAC RHYTHM [id number] / Related DISEASE MGMT [id number] Products Procedures Procedure Name Priority Date/Time Associated Comments Diagnosis CV LOOP RECORDER Routine 09/03/2017 4:22 Syncope, MONITOR EVAL <30DAYS PM CDT unspecified syncope type CV LOOP RECORDER Routine 06/03/2017 2:25 Syncope, MONITOR EVAL <30DAYS PM CALCULATION REVIEWER unspecified syncope type CV LOOP RECORDER Routine 03/07/2017 4:40 Syncope, MONITOR EVAL <30DAYS PM CDT unspecified syncope type EP TILT TABLE Routine 01/09/2017 8:25 Syncope, Results for this AM CDT unspecified syncope procedure are in type the results section. CV PACEMAKER DEFIB ILR Routine 12/15/2016 12:00 INTERROGATION AM CDT CV LOOP RECORDER Routine 12/04/2016 2:37 Syncope, MONITOR EVAL <30DAYS PM CDT unspecified syncope type CV PACEMAKER DEFIB ILR Routine 11/29/2016 12:00 INTERROGATION AM CDT EP LOOP RECORDER Routine 11/01/2016 5:27 Automatic Results for this INSERTION PM CDT ventricular procedure are in tachycardia the results section. EP COMPREHENSIVE STUDY Routine 11/01/2016 5:27 Automatic Results for this W ARRHYTHMIA INDUCTION PM CDT ventricular procedure are in tachycardia the results section. after 10/18/2016 Results Pv Transcranial Doppler intracranial arteries emboli detect wo inj (01/09/2017 8:30 AM) Specimen Performing Laboratory [facility] [address] [place] [address] Narrative Vascular Ultrasound Laboratory Transcranial Doppler Report (TCD) [address] [place] [address] Pat.Name:FRANCISCA UNGER.ID:[id number] .Date: 01/09/2017 Refer.MD:KOKO KAUFFMAN MD Exam Time: 6:20:00 AMStudy Type:TCD DOBAge:1970,46YSex: MALE Sonogrphr: Sylwia Rogers RVTPat. Stat.:Inpatient Room:[place] [address] Room 15 TapeVol: RF, CPT - 4: 71861 Echo Event ID:[id number] Order ID:[id number] Reason for Study:Multiple recurrent syncopal episodes. History of CAD, s/p UT, S/P CABG(08/2015). Race:C SUMMARY: TECHNIQUE: A head [...] Vascular Ultrasound Laboratory Transcranial Doppler Report (TCD) [address] [place] [address] Pat.Name: FRANCISCA UNGER Pat.ID: [id number] .Date: 01/09/2017 Refer.MD: KOKO KAUFFMAN MD Exam Time: 6:20:00 AM Study Type:TCD Age: 12 1970,46Y Sex: MALE Sonogrphr: Sylwia Rogers RVT Pat. Stat.:Inpatient Room: [place] [address] Room 15 Tape Vol: RF, CPT - 4: 12335 Echo Event ID:[id number] Order ID: [id number] Reason for Study:Multiple recurrent syncopal episodes. History of CAD, s/p UT, S/P CABG(08/2015). Race: C SUMMARY: TECHNIQUE: A [...] 8:25 AM) Specimen Performing Laboratory [facility] [address] [place] [address] Narrative Cardiac Catheterization Operative Note Francisca Unger,[id number] 46 y.o. male 01/09/2017; [facility] CARD ESTRELLITA 8 PROCEDURE ROOM 15 Procedure(s): Ep tilt table Procedure Details 46 year-old man with CAD, s/p UT, preserved EF, and recurrent syncope. Negative workup [...] lead (01/09/2017 6:58 AM)Only the most recent of3 resultswithin the time period is included. Component Value Ref Range Ventricular rate 60 Atrial rate 60 NE interval 168 QRSD interval 104 QT interval 448 QTC interval 448 P axis 1 55 QRS axis 1 -1 T wave axis 33 EKG impression Normal sinus rhythm-Normal ECG-In automated comparison with ECG of 15-DEC-2016 15:52,-Nonspecific T wave abnormality has replaced inverted T waves in Inferior leads- Specimen Performing Laboratory [facility] [address] [place] [address] CV pacemaker defib or ilr interrogation (12/15/2016)Cv pacemaker defib or ilr interrogation (12/04/2016 2:37 PM) Specimen Performing Laboratory [facility] [address] [place] [address] CT Head External Study (11/29/2016)CV pacemaker defib or ilr interrogation (09/2016)ECG Pre/Post Op (11/01/2016 5:45 PM) Component Value Ref Range Ventricular rate 65 Atrial rate 65 NE interval 174 QRSD interval 100 QT interval 408 QTC interval 424 P axis 1 60 QRS axis 1 2 T wave axis 53 EKG impression Normal sinus rhythm-Normal ECG-In automated comparison with ECG of 01-NOV-2016 11:58,-No significant change was found- Specimen Performing Laboratory [facility] [address] [place] [address] Cv electrophysiology procedure (11/01/2016 5:27 PM) Specimen Performing Laboratory [facility] [address] [place] [address] Narrative ELECTROPHYSIOLOGY SERVICE OPERATIVE REPORT PREPROCEDURE DIAGNOSES: 1. Wide complex tachycardia 2. Syncope 3. CAD status post CABG (cardiac MRI with total scar burden in LV of 4 %) POSTPROCEDURE DIAGNOSIS: 2. EP Study non-inducible for ventricular tachycardia/ventricular fibrillation TITLE OF PROCEDURES: 1. Partial electrophysiologic study 2. Partial electrophysiologic study with isoproterenol ATTENDING SURGEON: Dr. Koko Kauffman WELT POCKET MACHINE OPERATOR: Dr. Jude Dennison REFERRING PHYSICIAN: ANESTHESIA: Conscious [...] guided by ultrasonography as follows: 1.Right femoral vein:6-Greek sheaths x 2. We now advanced catheters [...] 2.Normal HV 50 msec, AH 114 msec, NE 160 msec, QT 400 msec, QRS 84 [...] monitoring. He was seen by the attending link trainer operator and was deemed an appropriate candidate for [...] IMPLANTED MATERIALS: ILR: Medtronic model LNQ11 serial [id number] CONCLUSION: Successful implantable loop recorder placement. Cardiac mri function viability chf evaluation (10/30/2016 1:51 PM) Specimen Performing Laboratory [facility] [address] CMR Report Patient Patient Name: FRANCISCA [...] Base Inferolateral | Normal/Hyper | 1-25%|| Sub-Endo UT| | Base Anterolateral | Normal/Hyper | 1-25%|| Sub-Endo UT| | Mid Anterior | Normal/Hyper | None ||| | Mid Anteroseptal | Normal/Hyper | None ||| | Mid Inferoseptal | Normal/Hyper | None ||| | Mid Inferior | Normal/Hyper | None ||| | Mid Inferolateral| Normal/Hyper | 1-25%|| Sub-Endo UT| | Mid Anterolateral| Normal/Hyper | 1-25%|| Sub-Endo UT| | Apical Anterior| Normal/Hyper | None ||| | Apical Septal| Normal/Hyper | 1-25%|| Sub-Endo UT| | Apical Inferior| Normal/Hyper | None ||| | Apical Lateral | Normal/Hyper | None ||| | [place] | Normal/Hyper | None ||| + + [...] mg ANY REACTION?:No CONTRAST AGENT TYPE:Dotarem LOT NUMBER:[id number] EXPIRATION DATE:2018-08-25 00:00:00 VOLUME ADMINISTERED:28 ml DOSAGE [...] Koko TAYLOR PHYSICIAN:José Ibarra MD TECHNOLOGIST:Barb Rader [facility] ASSISTANTS:1) Capri Rios RN 2) Wilmar Melton, RT 3) Emmett Miller MD [facility] Patient Account [id number] CPT Codes 21741, [ , ]04938 ICD10 Codes R94.30, [ , ]R93.1, [ , ]I49.8 Procedure Note Interface, Radiology Results In - 10/31/2016 12:05 PM CDT [facility] CMR Report Patient Patient Name: FRANCISCA UNGER [...] Normal/Hyper | 1-25% | | Sub -Endo UT | | Base Anterolateral | Normal/Hyper | 1-25% | | Sub -Endo UT | | Mid Anterior | Normal/Hyper | None | | | | Mid Anteroseptal | Normal/Hyper | None | | | | Mid Inferoseptal | Normal/Hyper | None | | | | Mid Inferior | Normal/Hyper | None | | | | Mid Inferolateral | Normal/Hyper | 1-25% | | Sub -Endo UT | | Mid Anterolateral | Normal/Hyper | 1-25% | | Sub -Endo UT | | Apical Anterior | Normal/Hyper | None | | | | Apical Septal | Normal/Hyper | 1-25% | | Sub -Endo UT | | Apical Inferior | Normal/Hyper | None | | | | Apical Lateral | Normal/Hyper | None | | | | [place] | Normal/Hyper | None | | | [...] No CONTRAST AGENT TYPE: Dotarem LOT NUMBER: [id number] EXPIRATION DATE: 2018-08-25 00:00:00 VOLUME ADMINISTERED: 28 [...] ATTENDING PHYSICIAN: José Ibarra MD TECHNOLOGIST: Barb GREGORY ASSISTANTS: 1) Capri Rios RN 2) Wilmar Melton, RT 3) Emmett ALEJANDRA Patient Account [id number] CPT Codes 55986, [ , ]00304 ICD10 Codes R94.30, [ , ]R93.1, [ [...] and Americans. Specimen Performing Laboratory Plasma specimen [facility] DEPARTMENT OF PATHOLOGY AND GENOMIC MEDICINE [address] [place] [address] Partial thromboplastin time, activated (10/30/2016 9:26 AM) Component Value Ref Range PTT 25.1 23.0 - 36.0 sec Comment: PTT therapeutic range for unfractionated heparin is 61.0-112.0 seconds which corresponds to Anti-Xa 0.3-0.7 U/ml. Specimen Performing Laboratory Blood [facility] DEPARTMENT OF PATHOLOGY AND [facility] MEDICINE [address] [place] [address] Prothrombin time with INR (10/30/2016 9:26 AM) Component Value Ref Range Prothrombin time 12.5 12.0 - 15.0 sec INR 0.9 Comment: The International Normalized Ratio (INR) is a therapeutic monitoring tool for patients who are stable on oral anticoagulant therapy. An INR of 2.0-3.0 is suggested for deep vein thrombosis/pulmonary embolism. Specimen Performing Laboratory Blood [facility] DEPARTMENT OF PATHOLOGY AND [facility] MEDICINE [address] [place] [address] CBC hemogram (10/30/2016 9:26 AM) Component Value [...] 0.00 /100 WBC Specimen Performing Laboratory Blood [facility] DEPARTMENT OF PATHOLOGY AND GENOMIC MEDICINE [address] [place] [address] Type and screen (10/30/2016 9:26 AM) Component Value Ref Range ABO grouping A Rh type POS Antibody screen (gel) NEG Specimen Performing Laboratory Blood [facility] DEPARTMENT OF PATHOLOGY AND GENOMIC MEDICINE [address] [place] [address] Comprehensive metabolic panel (10/30/2016 9:26 AM) Component [...] 8.4 (H) 6.3 - 8.3 g/dL Comment: 4.6-7.0 g/dL 1 week 4.4-7.6 g/dL 7 months-1year5.1-7.3 g/dL 1-2 years5.6-7.5 g/dL >3 years6.0-8.0 g/dL 18-150 6.3-8.3 g/dL Albumin 3.6 3.5 - 5.0 g/dL A/G ratio 0.8 0.7 - 3.8 Alkaline phosphatase 119 40 - 129 U/L AST 28 10 - 50 U/L ALT 43 5 - 50 U/L Total bilirubin 1.0 0.0 - 1.2 mg/dL Specimen Performing Laboratory Plasma specimen [facility] DEPARTMENT OF PATHOLOGY AND GENOMIC MEDICINE [address] [place] [address] after 10/18/2016 Insurance Payer Benefit Plan / Group Subscriber ID Type Phone Address [facility] OPEN ACCESS/NETWORK xxxxxxxxxxx HMO Home: [address] [facility] [phone] [place] [address]
[2017-10-19] MEDS ORDERED: ASPIRIN 81 MG CHEWABLE TABLET ONE (06:03)
[2017-10-19] MEDS ORDERED: MORPHINE 4 MG/ML SYR ONE ×2 (06:04→09:52)
[2017-10-19] MEDS ORDERED: ONDANSETRON 4 MG/2 ML VIAL ONE ×2 (06:04→08:20)
[2017-10-19 06:38] LABS: Absolute Lymphocytes (CBC) 1.3 K/uL (0.7-4.9); Absolute Monocytes 0.6 K/uL (0.1-1.3); Absolute Neutrophil 4.1 K/uL (1.8-8.0); Basophils % 0.6 % (0-1.3); Eosinophils % 2.8 % (0-4.4); Lymphocytes % 21.7 % (15.3-44.8); MPV 8.5 fL (7.6-11.3); Monocytes % 9.3 % (3.3-12.3); RBC Red Blood Cell Count 4.59 M/uL (4.33-5.43)
[2017-10-19 06:44] LABS: Potassium 3.2 mEq/L (3.6-5.0)
[2017-10-19] MEDS ORDERED: POTASSIUM CL SA 10 MEQ TAB PO ONE (06:47)
[2017-10-19 06:50] LABS: Albumin 3.8 g/dL (3.2-5.5); Bilirubin Direct 0.1 mg/dL (0-0.2); Bilirubin Total 0.5 mg/dL (0.3-1.2); Magnesium 1.7 mg/dL (1.8-2.5); Protein, Total 7.4 g/dL (6.0-8.3)
[2017-10-19 06:53] LABS: CKMB Creatine Kinase MB 1.3 ng/ml (0.3-4.0)
--- NOTE | 2017-10-19 07:43 | RAD REPORT ---
EXAM DESCRIPTION: CT - Angio Aorta For Dissection - 10/19/2017 7:22 am CLINICAL HISTORY: Chest pain COMPARISON: Portable chest October 19, noncontrast CT September 21 TECHNIQUE: Dynamically enhanced 3 mm thick images of the chest, abdomen, and upper pelvis were obtai rancho during administration of approximately 150mL Isovue 370 IV contrast. Sagittal and coronal reconst ruction images were generated and reviewed. Exam utilizes a protocol to evaluate entire course of the aorta. All CT scans are performed using dose optimization technique as appropriate and may include automated exposure control or mA/KV adjustment according to patient size. FINDINGS: Aorta is normal in diameter with no dissection or other acute aortic findings. Aortic athe rosclerotic calcifications are present below the renal vasculature extending into the common iliac ar teries. This is relatively prominent for the patient's age. Reconstruction images show no significant findings. Pulmonary arteries are normal as well. No cardiomegaly, pericardial thickening or pericardial effusio n. Atelectasis changes are present in the lower lung adamson. No acute mass or infiltrate. No pleural thi ckening, pleural effusion or pneumothorax. No abnormal mediastinal or hilar mass or lymphadenopathy seen. Granulomatous calcifications are ident ified. No chest wall mass or abnormal axillary lymphadenopathy. Celiac, SMA and renal arteries show no suspicious findings. No suspicious finding in the solid abdomi nal viscera. Relatively prominent enhancement in the liver along the superior margin gallbladder norma a is believed to be enhancement artifact of this arterial phase acquisition. True liver parenchymal l esion is felt to be unlikely. Chaney of the gallbladder are prominent and enhance greater than typical ly seen. There is a gallstone near the neck the gallbladder that has been previously detailed. No int rahepatic biliary tree dilatation. The extrahepatic biliary tree remains prominent. The 9 millimeter diameter is greater than expected but not clearly different from August. No mass or abnormal lymphadenopathy. No free air, free fluid or inflammatory stranding. No acute nelly wel process. Bladder and pelvic floor assessment are limited due to spray artifact from bilateral hip prostheses. Fat extends into the origin of the left inguinal canal. IMPRESSION: No acute aortic finding. Patient has prominent for age infrarenal aortoiliac atheroscler otic disease. Known cholelithiasis and known extrahepatic biliary tree dilatation. Duct stone is not excluded. Gallbladder wall is prominent with enhancement greater than typically seen. Correlation is needed if patient's pain symptoms could be due to cholecystitis. No other significant findings on chest, abdomen and upper pelvis examination.
--- NOTE | 2017-10-19 08:00 | RAD REPORT ---
EXAM DESCRIPTION: RAD - Chest Single View - 10/19/2017 6:22 am CLINICAL HISTORY: Left-sided chest pain COMPARISON: February 2017 TECHNIQUE: AP portable chest image was obtained 0618 hours . FINDINGS: No focal infiltrate, failure or mass. Lung markings are minimally prominent and stable. St ernotomy wires and loop recorder noted and stable. Heart and vasculature are normal. No measurable pl eural effusion and no pneumothorax. No gross bony abnormality seen. No acute aortic findings suspecte d. IMPRESSION: No acute cardiopulmonary process.
[2017-10-19] MEDS ORDERED: NA CHLORIDE 0.9% 1,000 ML ONE (08:20)
[2017-10-19] MEDS ORDERED: KETOROLAC 30 MG/ML INJ ONE (08:20)
[2017-10-19] MEDS ORDERED: NITROGLYCERIN 0.4 MG/TAB SL ONE (08:52)
--- NOTE | 2017-10-19 09:01 | RAD REPORT ---
EXAM DESCRIPTION: US - Abdomen Exam Limited - 10/19/2017 8:36 am CLINICAL HISTORY: Chest pain, abdominal pain, abnormal CT study COMPARISON: CT dissection October 19, 2017, CT abdomen September 21 FINDINGS: Gallbladder is distended but not dilated. Gallbladder wall is thickened and echogenic gene rally matching the abnormal appearance on the CT imaging. Trace amount of pericholecystic fluid is se en. Cystic duct is tortuous and prominent. A single 12 millimeter gallstone is identifiable. This is localized within a the neck or dilated tortuous cystic duct. Common bile duct is 9 mm. No intrahepatic dilatation. This also matches the CT study. No duct stone c ould be confirmed. IMPRESSION: Gallbladder wall thickening and edema with trace pericholecystic fluid. A 12 millimeter gallstone is present in a tortuous dilated cystic duct or prominent tortuous neck of the gallbladder. Positioning is similar to August. Extrahepatic biliary tree is mildly dilated similar to August. A duct stone could not be confirmed. Overall findings are suspicious for acute cholecystitis.
[2017-10-19 09:24] LABS: Urine Blood NEGATIVE (NEG); Urine Glucose NEGATIVE (NEG); Urine Protein NEGATIVE (NEG); Urine pH 5.5 (5.0-7.0)
[2017-10-19] MEDS ORDERED: PIPER/TAZO/NS 3.375gm 3.375 GM/100 ML BAG ONE (10:14)
--- NOTE | 2017-10-19 10:18 | EDPHYS ---
Physician Documentation [facility] Name: Richard Unger Age: 47 yrs Sex: Male : 1970 Arrival Date: 10/19/2017 Time: 05:38 Bed 16 Private MD: Uvaldo De Guzman R ED Physician Alex Celaya HPI: 10/19 06:30 This 47 yrs old Male presents to ER via Wheelchair with complaints of Chest kb Pain, High Blood Pressure. 06:30 The patient or guardian reports chest pain that is located primarily in the substernal kb area, epigastric area. Onset: this morning, at 01:00. The pain radiates to back. Associated signs and symptoms: The patient has no apparent associated signs or symptoms. The chest pain is described as tightness. Duration: The patient or guardian reports a single episode, that is still ongoing. Modifying factors: The symptoms are alleviated by nothing. the symptoms are aggravated by nothing. Severity of pain: At its worst the pain was moderate in the emergency department the pain is unchanged. The patient has experienced similar episodes in the past, a few times. The patient has not recently seen a physician. Pt reports chest pain that started at 0100 and has progressively gotten worse. Pt reported his bp was 215/120 at home prior to coming to the ER. Had quadruple bypass 2 years ago, a MD just prior to that and a MD 3 weeks after. . Historical: - Allergies: 06:13 Lyrica; bs1 06:13 Clindamycin; bs1 - Home Meds: 06:13 gabapentin oral oral [Active]; Aspirin Oral [Active]; Lisinopril Oral [Active]; bs1 Protonix Oral [Active]; Plavix Oral [Active]; Metoprolol Tartrate Oral [Active]; sertraline oral oral [Active]; Lipitor Oral [Active]; Trazodone Oral [Active]; - PMHx: 06:13 Diverticulitis; Hypertension; Myocardial infarction; High Cholesterol; bs1 - PSHx: 06:13 bilateral hip replacement; quad bypass; 2 back sx; reversal colostomy; bs1 - Immunization history:: Adult Immunizations up to date. - Social history:: Smoking status: Patient/guardian denies using tobacco. - Ebola Screening: : Patient negative for fever greater than or equal to 101.5 degrees Fahrenheit, and additional compatible Ebola Virus Disease symptoms Patient denies exposure to infectious person. ROS: 06:24 Constitutional: Negative for fever, chills, and weight loss, ENT: Negative for injury, kb pain, and discharge, Neck: Negative for injury, pain, and swelling, Respiratory: Negative for shortness of breath, cough, wheezing, and pleuritic chest pain, Back: Negative for injury and pain, : Negative for injury, bleeding, discharge, and swelling, MS/Extremity: Negative for injury and deformity, Skin: Negative for injury, rash, and discoloration, Neuro: Negative for headache, weakness, numbness, tingling, and seizure. 06:24 Cardiovascular: Positive for chest pain, Negative for edema, orthopnea, palpitations, paroxysmal nocturnal dyspnea. 06:30 Abdomen/GI: Positive for abdominal pain, Negative for nausea, vomiting, and diarrhea, kb constipation, abdominal cramps, abdominal distension, anorexia. Exam: 06:24 Constitutional: This is a well developed, well nourished patient who is awake, alert, kb and in no acute distress. Head/Face: Normocephalic, atraumatic. Neck: Trachea midline, no thyromegaly or masses palpated, and no cervical lymphadenopathy. Supple, full range of motion without nuchal rigidity, or vertebral point tenderness. No Meningismus. Chest/axilla: Normal chest wall appearance and motion. Nontender with no deformity. No lesions are appreciated. Cardiovascular: Regular rate and rhythm with a normal S1 and S2. No gallops, murmurs, or rubs. Normal PMI, no JVD. No pulse deficits. Respiratory: Lungs have equal breath sounds bilaterally, clear to auscultation and percussion. No rales, rhonchi or wheezes noted. No increased work of breathing, no retractions or nasal flaring. Abdomen/GI: Soft, non-tender, with normal bowel sounds. No distension or tympany. No guarding or rebound. No evidence of tenderness throughout. Back: No spinal tenderness. No costovertebral tenderness. Full range of motion. Skin: Warm, dry with normal turgor. Normal color with no rashes, no lesions, and no evidence of cellulitis. MS/ Extremity: Pulses equal, no cyanosis. Neurovascular intact. Full, normal range of motion. Neuro: Awake and alert, GCS 15, oriented to person, place, time, and situation. Cranial nerves II-XII grossly intact. Motor strength 5/5 in all extremities. Sensory grossly intact. Cerebellar exam normal. Normal gait. Vital Signs: 06:00 BP 175 / 101; Pulse 55; Resp 13 S; Temp 97.9(O); Pulse Ox 99% on R/A; Weight 95.25 kg; bs1 Height 5 ft. 7 in. (170.18 cm); Pain 10/10; 06:39 BP 137 / 88; Pulse 56; Resp 14; Pulse Ox 100% on R/A; Pain 8/10; bs1 06:56 BP 134 / 79 RA Supine (auto/reg); Pulse 58 RA; Resp 13 S; Pulse Ox 97% on R/A; bs1 06:57 BP 135 / 79 LA (auto/reg); Pulse 58 LA; Resp 11 S; Pulse Ox 99% on R/A; bs1 07:55 BP 132 / 81; Pulse 57; Resp 16; Pulse Ox 99% on R/A; ph 08:55 BP 163 / 92; Pulse 54; Resp 14; Pulse Ox 98% on R/A; ph 10:41 BP 140 / 92; Pulse 53; Resp 16; Pulse Ox 99% on R/A; aj 06:00 Body Mass Index 32.89 (95.25 kg, 170.18 cm) bs1 MDM: 05:55 Patient medically screened. kb 06:24 The patient was given aspirin in the Emergency Department. DAVID Risk Score: 1- Known kb CAD, 1 - ASA use in past 7 days. Data reviewed: vital signs, nurses notes. Data interpreted: Pulse oximetry: on room air is 99 %. Interpretation: normal. 09:29 Physician consultation: Antwon Wilkes MD regarding consult, patient's condition, after a kb discussion of the case, a recommendation for transfer for higher level of care is made, pt needs GI evaluation, no GI available at this time. 09:30 ED course: Transfer initiated to [facility] . kb 10:16 Counseling: I had a detailed discussion with the patient and/or guardian regarding: the kb historical points, exam findings, and any diagnostic results supporting the discharge/admit diagnosis, lab results, radiology results, the need to transfer to another facility, [facility] does not immediately have the required specialist. 10/19 06:00 Order name: CPK kb 10/19 06:00 Order name: Ckmb kb 10/19 06:00 Order name: Basic Metabolic Panel; Complete Time: 06:55 kb 10/19 06:00 Order name: BNP; Complete Time: 06:55 kb 10/19 06:00 Order name: CBC with Diff; Complete Time: 06:44 kb 10/19 06:00 Order name: LFT's; Complete Time: 06:55 kb 10/19 06:00 Order name: Magnesium; Complete Time: 06:55 kb 10/19 06:00 Order name: PT-INR; Complete Time: 06:44 kb 10/19 06:00 Order name: Ptt, Activated; Complete Time: 06:44 kb 10/19 06:00 Order name: Troponin (emerg Dept Use Only); Complete Time: 06:51 kb 10/19 06:00 Order name: XRAY Chest (1 view); Complete Time: 08:03 kb 10/19 06:00 Order name: Creatine Phosphokinase; Complete Time: 06:55 EDMS 10/19 06:00 Order name: CKMB Creatine Kinase MB; Complete Time: 06:55 EDMS 10/19 09:18 Order name: Urine Dipstick--Ancillary (enter results); Complete Time: 09:26 ag 10/19 06:00 Order name: EKG; Complete Time: 06:00 kb 10/19 06:00 Order name: Cardiac monitoring; Complete Time: 06:01 kb 10/19 06:00 Order name: EKG - Nurse/Tech; Complete Time: 06:01 kb 10/19 06:00 Order name: IV Saline Lock; Complete Time: 06:01 kb 10/19 06:00 Order name: Labs collected and sent; Complete Time: 06:01 kb 10/19 06:00 Order name: O2 Per Protocol; Complete Time: 06:01 kb 10/19 06:00 Order name: O2 Sat Monitoring; Complete Time: 06:02 kb 10/19 06:58 Order name: CT Aorta for Dissection; Complete Time: 07:45 kb 10/19 07:46 Order name: US Abdomen Limited; Complete Time: 09:03 kb 10/19 06:51 Order name: Bilateral blood pressure; Complete Time: 06:54 kb Administered Medications: 06:08 Drug: Aspirin Chewable Tablet 324 mg Route: PO; bs1 10:13 Follow up: Response: No adverse reaction ph 06:08 Drug: morphine 4 mg Route: IVP; Site: left forearm; bs1 10:13 Follow up: Response: No adverse reaction ph 06:08 Drug: Zofran 4 mg Route: IVP; Site: left forearm; bs1 10:13 Follow up: Response: No adverse reaction ph 06:53 Drug: Potassium Chloride 40 mEq Route: PO; bs1 10:13 Follow up: Response: No adverse reaction ph 08:59 Drug: Nitroglycerin 0.4 mg Route: Sublingual; ph 10:12 Follow up: Response: No adverse reaction; Pain is unchanged, physician notified; Blood ph pressure is lowered 10:05 Drug: morphine 4 mg Route: IVP; Site: left forearm; ph 11:28 Follow up: Response: Pain is decreased aj 10:19 Drug: Zosyn 3.375 grams Route: IVPB; Infused Over: 60 mins; Site: left forearm; aj 11:28 Follow up: Response: No adverse reaction; IV Status: Completed infusion; IV Intake: aj 100ml Disposition: 10/19/17 10:[address] [facility]. Diagnosis is Cholecystitis. - Reason for transfer: Higher level of care. - Accepting physician is Dr. Blackman. - Condition is Stable. - Problem is new. - Symptoms are unchanged. Addendum: 10/23/2017 07:14 Co-signature as Attending Physician, Alex Celaya MD. g s Signatures: Dispatcher [employer] Nancy Zavala, ASSISTANT WINEMAKER-C ASSISTANT WINEMAKER-CkCaridad Yang RN RN aj Hall, Patricia, RN RN Maddie Ordonez [facility] Alex Celaya MD MD gs Salazar, Brittany, RN RN bs1 Corrections: (The following items were deleted from the chart) 10/19 06:30 06:24 Constitutional: Negative for fever, chills, and weight loss, ENT: Negative for kb injury, pain, and discharge, Neck: Negative for injury, pain, and swelling, Respiratory: Negative for shortness of breath, cough, wheezing, and pleuritic chest pain, Abdomen/GI: Negative for abdominal pain, nausea, vomiting, diarrhea, and constipation, Back: Negative for injury and pain, : Negative for injury, bleeding, discharge, and swelling, MS/Extremity: Negative for injury and deformity, Skin: Negative for injury, rash, and discoloration, Neuro: Negative for headache, weakness, numbness, tingling, and seizure, kb 07:26 06:30 Pt reports chest pain that started at 0100 and has progressively gotten worse. kb Had quadruple bypass 2 years ago, a MD just prior to that and a MD 3 weeks after. . kb 11:40 10:17 10/19/2017 10:[address] [facility]. Diagnosis is mh5 Cholecystitis. Reason for transfer: Higher level of care. Accepting physician is Dr. Blackman. Condition is Stable. Problem is new. Symptoms are unchanged. kb
--- NOTE | 2017-10-19 10:18 | ER ---
Nurse's Notes [facility] Name: Richard Unger Age: 47 yrs Sex: Male : 1970 Arrival Date: 10/19/2017 Time: 05:38 Bed 16 Private MD: Uvaldo De Guzman R Diagnosis: Cholecystitis Presentation: 10/19 06:00 Presenting complaint: Patient states: "I started having chest pains at 0130 this bs1 morning on my left side and mid upper abdomen.". 06:00 Transition of care: patient was not received from another setting of care. Onset of bs1 symptoms was October 19, 2017 at 01:30. Risk Assessment: Do you want to hurt yourself or someone else? Patient reports no desire to harm self or others. Initial Sepsis Screen: Does the patient meet any 2 criteria? No. Patient's initial sepsis screen is negative. Does the patient have a suspected source of infection? No. Patient's initial sepsis screen is negative. Care prior to arrival: Medication(s) given: hydrocodone. 06:00 Method Of Arrival: Wheelchair bs1 06:00 Acuity: CASSIDY 3 bs1 Historical: - Allergies: 06:13 Lyrica; bs1 06:13 Clindamycin; bs1 - Home Meds: 06:13 gabapentin oral oral [Active]; Aspirin Oral [Active]; Lisinopril Oral [Active]; bs1 Protonix Oral [Active]; Plavix Oral [Active]; Metoprolol Tartrate Oral [Active]; sertraline oral oral [Active]; Lipitor Oral [Active]; Trazodone Oral [Active]; - PMHx: 06:13 Diverticulitis; Hypertension; Myocardial infarction; High Cholesterol; bs1 - PSHx: 06:13 bilateral hip replacement; quad bypass; 2 back sx; reversal colostomy; bs1 - Immunization history:: Adult Immunizations up to date. - Social history:: Smoking status: Patient/guardian denies using tobacco. - Ebola Screening: : Patient negative for fever greater than or equal to 101.5 degrees Fahrenheit, and additional compatible Ebola Virus Disease symptoms Patient denies exposure to infectious person. Screenin:16 Abuse screen: Denies threats or abuse. Denies injuries from another. Nutritional bs1 screening: No deficits noted. Tuberculosis screening: No symptoms or risk factors identified. Fall Risk None identified. Assessment: 06:00 General: Appears uncomfortable, Behavior is cooperative, anxious. Pain: Complains of bs1 pain in left side of chest, mid epigastric Pain does not radiate. Pain began gradually. Neuro: Level of Consciousness is awake, alert, obeys commands, Oriented to person, place, time, situation, Appropriate for age Fisher Hand Line are equal bilaterally. Cardiovascular: Reports chest pain, nausea, shortness of breath, Denies palpitations, Heart tones S1 S2 present Capillary refill < 3 seconds Patient's skin is warm and dry. Respiratory: Airway is patent Trachea midline Respiratory effort is even, unlabored, Breath sounds are clear bilaterally. GI: Abdomen is round Bowel sounds present X 4 quads. Reports epigastric pain, nausea. : No deficits noted. No signs and/or symptoms were reported regarding the genitourinary system. EENT: No deficits noted. No signs and/or symptoms were reported regarding the EENT system. Derm: Skin is intact, Skin is pink, warm \\T\\ dry. Musculoskeletal: Circulation, motion, and sensation intact. Capillary refill < 3 seconds, Range of motion: intact in all extremities. 07:30 Reassessment: Patient appears in no apparent distress at this time. Patient and/or ph family updated on plan of care and expected duration. Pain level reassessed. Patient is alert, oriented x 3, equal unlabored respirations, skin warm/dry/pink. Pt resting quietly, awaiting US, family at bedside. 08:56 Reassessment: Patient appears in no apparent distress at this time. Patient and/or ph family updated on plan of care and expected duration. Pain level reassessed. Patient is alert, oriented x 3, equal unlabored respirations, skin warm/dry/pink. Pt reports that chest pain has returned/increased, ERP notified see AQUILINO VSS, family at bedside, awaiting US results. Vital Signs: 06:00 BP 175 / 101; Pulse 55; Resp 13 S; Temp 97.9(O); Pulse Ox 99% on R/A; Weight 95.25 kg; bs1 Height 5 ft. 7 in. (170.18 cm); Pain 10/10; 06:39 BP 137 / 88; Pulse 56; Resp 14; Pulse Ox 100% on R/A; Pain 8/10; bs1 06:56 BP 134 / 79 RA Supine (auto/reg); Pulse 58 RA; Resp 13 S; Pulse Ox 97% on R/A; bs1 06:57 BP 135 / 79 LA (auto/reg); Pulse 58 LA; Resp 11 S; Pulse Ox 99% on R/A; bs1 07:55 BP 132 / 81; Pulse 57; Resp 16; Pulse Ox 99% on R/A; ph 08:55 BP 163 / 92; Pulse 54; Resp 14; Pulse Ox 98% on R/A; ph 10:41 BP 140 / 92; Pulse 53; Resp 16; Pulse Ox 99% on R/A; aj 06:00 Body Mass Index 32.89 (95.25 kg, 170.18 cm) bs1 ED Course: 05:38 Patient arrived in ED. al2 05:55 Nancy Schwarz F[facility]-C [facility]. kb 05:55 Alex Celaya MD is Attending Physician. kb 05:59 EKG done, by ED staff, reviewed by Alex Celaya MD. Missed attempt(s): 20 gauge in mt left antecubital area. 06:00 Inserted saline lock: 22 gauge in left forearm, using aseptic technique. Blood bs1 collected. Patient maintains SpO2 saturation greater than 95% on room air. 06:07 Ly Cohen, RN is Primary Nurse. bs1 06:09 Triage completed. bs1 06:19 Patient has correct armband on for positive identification. Bed in low position. Call bs1 light in reach. Side rails up X 1. campus monitor on. Pulse ox on. NIBP on. Warm blanket given. 06:20 Arm band placed on placed. EKG completed in triage. Results shown to MD. bs1 06:21 X-ray completed. Portable x-ray completed in exam room. Patient tolerated procedure kw well. 06:22 XRAY Chest (1 view) In Process Unspecified. EDMS 07:03 Uvaldo De Guzman MD is Private Physician. kb 07:20 CT completed. Patient tolerated procedure well. Patient moved to CT via stretcher. sj Patient moved back from CT. 07:23 CT Aorta for Dissection In Process Unspecified. EDMS 08:37 US Abdomen Limited In Process Unspecified. EDMS 08:37 Ultrasound completed. Patient tolerated well. aa4 10:33 Primary Nurse role handed off by Ly Cohen RN aj 10:33 Caridad Pierre, RN is Primary Nurse. aj 11:26 No provider procedures requiring assistance completed. Patient transferred, IV remains aj in place. intact. 11:26 Report given to Deandra at [facility]. aj Administered Medications: 06:08 Drug: Aspirin Chewable Tablet 324 mg Route: PO; bs1 10:13 Follow up: Response: No adverse reaction ph 06:08 Drug: morphine 4 mg Route: IVP; Site: left forearm; bs1 10:13 Follow up: Response: No adverse reaction ph 06:08 Drug: Zofran 4 mg Route: IVP; Site: left forearm; bs1 10:13 Follow up: Response: No adverse reaction ph 06:53 Drug: Potassium Chloride 40 mEq Route: PO; bs1 10:13 Follow up: Response: No adverse reaction ph 08:59 Drug: Nitroglycerin 0.4 mg Route: Sublingual; ph 10:12 Follow up: Response: No adverse reaction; Pain is unchanged, physician notified; Blood ph pressure is lowered 10:05 Drug: morphine 4 mg Route: IVP; Site: left forearm; ph 11:28 Follow up: Response: Pain is decreased aj 10:19 Drug: Zosyn 3.375 grams Route: IVPB; Infused Over: 60 mins; Site: left forearm; aj 11:28 Follow up: Response: No adverse reaction; IV Status: Completed infusion; IV Intake: aj 100ml Intake: 11:28 IV: 100ml; Total: 100ml. jacob Outcome: 10:17 ER care complete, transfer ordered by MD. payan 11:26 Transferred by ground EMS to [facility], Transfer form completed. aj X-rays sent w/ patient. 11:26 Condition: good 11:26 Discharge instructions given to EMS, Instructed on the need for transfer, Demonstrated understanding of instructions. 11:40 Patient left the ED. [facility] Signatures: Dispatcher [employer] EDMS Nancy Schwarz, PERSONAL COMPUTER NETWORK ENGINEER-C PERSONAL COMPUTER NETWORK ENGINEER-CkCaridad Yang, RN Zoey Yin Amanda [facility] Jammie Figueroa Patricia, RN RN Maddie Ordonez [facility] Mariangel Abad ar Ly Cohne, RN RN bs1 Fara Baldwin2 Corrections: (The following items were deleted from the chart) 06:39 06:00 BP 175 / 101; Pulse 55bpm; Resp 13bpm; Spontaneous; Pulse Ox 99% RA; 95.25 kg; bs1 Height 5 ft. 7 in.; BMI: 32.8; Pain 10/10; bs1
[2017-10-19 11:45] VITALS: TEMP 97.9
[2017-10-19 11:51] VITALS: BP 140/92; O2SAT 99
--- NOTE | 2017-10-19 17:40 | EKG ---
Test Date: 2017-10-19 Test Time: 05:45:02 Sorting Grapple Operator: RENE MEASUREMENT RESULTS: Intervals: Rate: 57 NH: 168 QRSD: 98 QT: 446 QTc: 434 [place]: P: 63 NH: 168 QRS: 15 T: 83 INTERPRETIVE STATEMENTS: Sinus bradycardia Nonspecific T wave abnormality Abnormal ECG Compared to ECG 03/28/2017 11:30:26 Sinus tachycardia no longer present Possible ischemia no longer present T-wave abnormality still present Electronically Signed On 10-19-17 17:37:08 CDT by Maximilian Patrick
== END 2017-10-19 11:40 | disposition short-term general hospital (02) ==
LOC: ER 05:37
DX: K81.9 Cholecystitis, unspecified (principal); I10 Essential (primary) hypertension; I25.2 Old myocardial infarction; E78.00 Pure hypercholesterolemia, unspecified; Z88.3 Allergy status to other anti-infective agents; Z88.8 Allergy status to other drugs, medicaments and biological substances; Z79.01 Long term (current) use of anticoagulants; Z79.82 Long term (current) use of aspirin
CPT/HCPCS: 36415; 71045; 71275; 74175; 76705; 80048; 80076; 81003; 82550; 82553; 83735; 83880; 84484; 85025; 85610; 85730; 93005; 96365; 96375; 99285; J2405; J2543; J7030; Q9967